=== PATIENT | female | born 1990 | race Caucasian/White ===

== ENCOUNTER 2017-07-21 20:01 | Emergency (ER) | payer OTHER ==
[~2017-07-21] VITALS: Ht 154.9 cm; Wt 72.0 kg
[2017-07-21 20:14] VITALS: BP 139/69; PULSE 84; RESP 16; TEMP 98.2; O2SAT 100
[2017-07-21] MEDS ORDERED: IMIT25TA PO (20:33)
[2017-07-21] MEDS ORDERED: DOXY10TA PO (20:33)
--- NOTE | 2017-07-21 20:43 | PD ---
HPI Chief Complaint: Skin Problem Time Seen by Provider: 20:33 Travel History International Travel<30 days: No Contact w/Intl Traveler<30days: No Traveled to known affect area: No History of Present Illness HPI Patient comes in complaining of possible MRSA infection of her left forearm that began 2-3 days ago. Patient started small pimple just progressively gotten worse. Patient states she popped it yesterday with her fingernail, which since has increased redness and soreness in the area without radiation. Patient has been using leftover Bactroban ointment from previous MRSA infection however continues to get worse. Patient denies any fevers, IV drug use, radiation of the pain, chest pain, or shortness breath. Patient reports she is approximately 9 weeks. PFSH Past Medical History Diminished Hearing: No Medical other: Yes (fibromyalgia) Tetanus Vaccination: > 5 Years Influenza Vaccination: No ?: LMP: 05/21/17 Past Surgical History Section: Yes (2016) Social History Alcohol Use: No Tobacco Use: No Substance Use: No Allergies-Medications (Allergen,Severity, Reaction): Coded Allergies: No Known Allergies (Unverified , 07/21/17) Reported Meds & Prescriptions Reported Meds & Active Scripts Active Bactroban Topical (Mupirocin) 22 Gm Cream 1 Applic TOPICAL TID Reported Imitrex (Sumatriptan Succinate) 25 Mg Tab 25 Mg PO ONCE PRN If a satisfactory response has not been obtained at 2 hours, a second dose may be administered Diclegis (Doxylamine-Pyridoxine) 10-10 Mg Tab 10 Mg PO Q4-6H PRN Review of Systems Except as stated in HPI: all other systems reviewed are Neg Physical Exam Narrative GENERAL: Well-developed, well nourished, in no acute distress, and non-ill appearing. SKIN: The area of erythematous is febrile and mildly tender to palpation and indurated noted on the volar surface of left forearm there is no drainage. Approximately 2.5 centimeters in greatest diameter. There is no crepitus or fluctuation. Patient's second smaller area proximal aspect of her left forearm volar surface is approximately half centimeters in greatest diameter. There is no drainage, crepitus, or fluctuation.. HEAD: Atraumatic. Normocephalic. EYES: Pupils equal and round. EOMI. No scleral icterus. No injection or drainage. ENT: No nasal bleeding or discharge. Mucous membranes pink and moist. NECK: Trachea midline. Supple. No nuclear rigidity. RESPIRATORY: No accessory muscle use. No respiratory distress. MUSCULOSKELETAL: No obvious deformities. No clubbing. No cyanosis. No edema. Full range of motion. NEUROLOGICAL: Awake and alert. No obvious cranial nerve deficits. Motor grossly within normal limits. Normal speech. PSYCHIATRIC: Appropriate mood and affect; insight and judgment normal. Data Data Last Documented VS Vital Signs Date Time Temp Pulse Resp B/P (MAP) Pulse Ox O2 Delivery O2 Flow Rate FiO2 07/21/17 20:14 98.2 84 16 139/69 (92) 100 Orders Orders Ed Discharge Order (07/21/17 20:43) MDM Medical Decision Making Medical Screen Exam Complete: Yes Emergency Medical Condition: Yes Differential Diagnosis Abscess, cellulitis, folliculitis, gangrene Narrative Course The patient has cellulitis. There is no evidence of necrotizing fasciitis at this time. There is no evidence of abscess. There is no evidence of local joint space involvement. There is no evidence of deep venous thrombosis. The patient will be discharged on antibiotics. The patient was given signs and symptoms warnings for worsening infection, such as spreading of redness, increasing pain , and/or swelling, associated heat, or fever and instructed to return immediately if these signs or symptoms worsen. The patient is to follow up with physician in 2 days for recheck or return here in 2 days for recheck if unable to establish outpatient follow up. Sooner if worsens or as needed. The patient agrees with plan. Patient in no obvious distress upon re-evaluation. Patient was asked if they wanted to speak to my attending, which the patient did not wish to do at this time. Any questions/concerns in reference to patient diagnosis/condition discussed and clarified prior to patient's discharge. Reinforced sheer importance of close follow up with patient's primary physician or primary care clinic and return here in 2 days for recheck. Instructed patient to return to ED immediately, if symptoms return/worsen. Patient showed understanding of above instructions. Further instructions and recommendations were detailed in discharge paperwork. Patient ambulated without difficulty out of ED at discharge. Diagnosis Primary Impression: Cellulitis of left forearm Referrals: [facility] Patient Instructions: Cellulitis (ED), General Instructions Additional Instructions: Follow-up with your primary care physician or return here in 2 days for recheck. Take all medication as prescribed. Return to the emergency department if symptoms get worse. Med/Other Pt SpecificInfo: Prescription(s) given Scripts Mupirocin Topical (Bactroban Topical) 22 Gm Cream 1 APPLIC TOPICAL TID for Mgmt Bacterial Infection, #1 TUBE 0 Refills Prov: Esequiel Haji MD 07/21/17 Disposition: 01 DISCHARGE HOME Condition: Stable Billy Reich Jul 21, 2017 20:43
[2017-07-21] MEDS ORDERED: CLIN300C5 PO (20:44)
[2017-07-21] MEDS ORDERED: MUPI2%T TOPICAL (21:06)
== END 2017-07-21 21:18 | disposition home or self-care (01) ==
LOC: PHEFT 20:01
DX: O98.811 Other maternal infectious and parasitic diseases complicating pregnancy, first trimester (principal); L03.114 Cellulitis of left upper limb; M79.7 Fibromyalgia; Z86.14 Personal history of Methicillin resistant Staphylococcus aureus infection; Z3A.09 9 weeks gestation of pregnancy
CPT/HCPCS: 99283

== ENCOUNTER 2017-12-04 15:57 | Emergency (ER) | payer OTHER ==
[~2017-12-04 15:57] MED LIST: DOXY10TA PO; IMIT25TA PO; MUPI2%T TOPICAL
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
[2017-12-04 17:30] VITALS: BP 109/59; PULSE 96
[2017-12-04 18:20] VITALS: RESP 18
[2017-12-04 18:21] VITALS: BP 125/83; PULSE 114
[2017-12-04 19:58] VITALS: RESP 18
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
== END 2017-12-04 22:04 | disposition home or self-care (01) ==
LOC: HOBED 15:57
DX: O26.893 Other specified pregnancy related conditions, third trimester (principal); R10.31 Right lower quadrant pain; Z3A.28 28 weeks gestation of pregnancy
CPT/HCPCS: 76815; 87641; 99284

== ENCOUNTER 2017-12-25 17:16 | Emergency (ER) | payer OTHER ==
[2017-12-25] MEDS ORDERED: DEXT 5%-NACL 0.45% 1000 ML INJ 1,000 ML IV SCH (18:00)
[2017-12-25] MEDS ORDERED: TERBUTALINE INJ 1 MG/ML AMP SQ PRN (18:00)
--- NOTE | 2017-12-25 18:01 | PD ---
HPI Chief Complaint Decreased movement Date Seen: December 25, 2017 Time Seen: 17:52 Travel History International Travel<30 Days: No Contact w/Intl Traveler<30Days: No Known Affected Area: No History of Present Illness HPI 27-year-old white female at 31 [address] Velásquez for care. She presented plan decreased movement today. Also states she has contractions all the time and she is rudy today about every 3-4 minutes. No vaginal bleeding no leakage of fluid, NST is reactive Weeks Gestation: 31 Para: 1 : 2 History Past Medical History Narrative Medical Fibromyalgia Chronic migraine Obstetric History Obstetric History 1 for failed induction term Past Surgical History Narrative Surgical C section Social History Alcohol Use: No Tobacco Use: No Substance Abuse: No Allergies-Medications (Allergen,Severity, Reaction): Coded Allergies: No Known Allergies (Unverified , 07/21/17) Home Meds Active Scripts Mupirocin Topical (Bactroban Topical) 22 Gm Cream, 1 APPLIC TOPICAL TID for Mgmt Bacterial Infection, #1 TUBE 0 Refills Prov:Esequiel Haji MD 07/21/17 Reported Medications Sumatriptan (Imitrex) 25 Mg Tab, 25 MG PO ONCE Y for MIGRAINE HEADACHE, TAB 0 Refills If a satisfactory response has not been obtained at 2 hours, a second dose may be administered 07/21/17 Doxylamine-Pyridoxine (Diclegis) 10-10 Mg Tab, 10 MG PO Q4-6H Y for NAUSEA 07/21/17 Review of Systems General / Constitutional: No: Fever, Weight Gain, Chills, Other Eyes: No: Diploplia, Blurred Vision, Visual changes, Pain, Photophobia HENT: No: Headaches, Vertigo, Lightheadedness Cardiovascular: No: Irregular Rhythm, Chest Pain or Discomfort, Palpitations, Tachycardia, Syncope, Varicosities, Edema, Cyanosis Respiratory: No: Cough, Short of Breath, Other Gastrointestinal: No: Nausea, Vomiting, Diarrhea Genitourinary: No: Decreased Urinary Output, Oliguria Musculoskeletal: No: Limited ROM, Weakness, Cramping, Edema, Pain Skin: No Rash, No Itching, No Dryness, No Lumps, No Change in Pigmentation, No Change in Nails, No Alopecia, No Lesions Neurologic: No: Weakness, Dizziness, Syncope, Focal Abnormalities, Coordination Problem, Headache, Slurred Speech, Seizures Psychiatric: No: Depression, Suicidal Ideations, Homicidal Ideation Endocrine: No: Heat Intolerance, Cold Intolerance, Polydipsia, Polyuria, Other Physical Exam Narrative GENERAL: Well-nourished, well-developed patient. SKIN: Warm and dry. HEAD: Normocephalic and atraumatic. EYES: No scleral icterus. No injection or drainage. ENT: No nasal drainage noted. Mucous membranes pink. Airway patent. NECK: Supple, trachea midline. No JVD. CARDIOVASCULAR: Regular rate and rhythm without murmurs, gallops, or rubs. RESPIRATORY: Breath sounds equal bilaterally. No accessory muscle use. BREASTS: Bilateral exam showed no masses , no retractions, no nipple discharge. ABDOMEN/GI: Abdomen soft, non-tender, bowel sounds present, no rebound, no guarding Gravid to [-30] weeks size Fundal Height: [30-] GENITOURINARY: External Genitalia: intact and normal in appearance BUS glands: [-] Cervix: [-post] Dilatation: [0-] Effacement: [-0] Station: [-3] ] Membranes: [intact ] Uterine Contractions: [-q 3 min] FHT's: Category: [1-] Baseline: [-133] Reactive: [R-] Variability: [mod-] Decels: [-0] EXTREMITIES: No cyanosis or edema. BACK: Nontender without obvious deformity. No CVA tenderness. NEUROLOGICAL: Awake and alert. Motor and sensory grossly within normal limits. Five out of 5 muscle strength in all muscle groups. Normal speech. Data Data Orders Orders Vital Signs (Adult) .ON ADMISSION (12/25/17 17:52) ^ Labor Status (12/25/17 17:52) ^ Non Stress Test (12/25/17 17:52) ^ Hydration (12/25/17 17:52) Fibronectin (12/25/17 17:52) Dext 5%-Nacl 0.45% 1000 Ml Inj (D5w-1/2 (12/25/17 17:52) Terbutaline Inj (Brethine Inj) (12/25/17 18:00) Fentanyl Inj (Fentanyl Inj) (12/25/17 18:00) MDM Interpretation(s) Patient is 27-year-old white female 31 weeks previous presents with decreased movement. She sees Dr. Velásquez care. She has a reactive NST for 31 weeks, she also is having regular contractions that she is not really feeling and she states she has these all the time. However because she is rudy regularly 31 weeks we needed to do something to address that issue fibronectin done and is negative, urine dip on OB ED is negative Cervix is closed high. Plan Plan fibronectin, tocolyse is with IV fluid, subcu terb, IV fentanyl. If contractions decrease with the above measures then plan discharge the patient home to follow-up with Dr. Velásquez Diagnosis Diagnosis: Primary Impression: Decreased movement affecting management of in third trimester Additional Impressions: Premature uterine contractions causing threatened premature labor in third trimester 31 weeks gestation of Disposition: 01 DISCHARGE HOME Condition: Stable David Terrazas II, MD December 25, 2017 18:01
== END 2017-12-25 19:10 | disposition home or self-care (01) ==
LOC: HOBED 17:16
DX: O36.8130 Decreased fetal movements, third trimester, not applicable or unspecified (principal); O47.03 False labor before 37 completed weeks of gestation, third trimester; Z3A.31 31 weeks gestation of pregnancy
CPT/HCPCS: 82731; 96365; 96372; 99284; J3105

== ENCOUNTER 2018-01-04 19:51 | Emergency (ER) | payer OTHER ==
--- NOTE | 2018-01-04 21:58 | PD ---
HPI Chief Complaint ctxs Date Seen: January 04, 2018 Time Seen: 21:53 Travel History International Travel<30 Days: No Contact w/Intl Traveler<30Days: No Known Affected Area: No History of Present Illness HPI pt. is a @ 32 4/7 weeks present w/ c/o ctxs. pt. states thruout the day has been having ctxs. the contractions have been increasing in freq and intensity thruout the day. +FM, no lof/vb. Weeks Gestation: 32 Para: 1 : 2 History Past Medical History Medical History: Denies Significant Hx Obstetric History Obstetric History , x 1 Past Surgical History Surgical History: No Previous Surgery Family History Family History: Negative Social History Alcohol Use: No Tobacco Use: No Substance Abuse: No Allergies-Medications (Allergen,Severity, Reaction): Coded Allergies: No Known Allergies (Unverified , 07/21/17) Home Meds Active Scripts Mupirocin Topical (Bactroban Topical) 22 Gm Cream, 1 APPLIC TOPICAL TID for Mgmt Bacterial Infection, #1 TUBE 0 Refills Prov:Esequiel Haji MD 07/21/17 Reported Medications Sumatriptan (Imitrex) 25 Mg Tab, 25 MG PO ONCE Y for MIGRAINE HEADACHE, TAB 0 Refills If a satisfactory response has not been obtained at 2 hours, a second dose may be administered 07/21/17 Doxylamine-Pyridoxine (Diclegis) 10-10 Mg Tab, 10 MG PO Q4-6H Y for NAUSEA 07/21/17 Review of Systems Except as stated in HPI: all other systems reviewed are Neg Physical Exam Narrative GENERAL: Well-nourished, well-developed patient. SKIN: Warm and dry. HEAD: Normocephalic and atraumatic. EYES: No scleral icterus. No injection or drainage. ENT: No nasal drainage noted. Mucous membranes pink. Airway patent. NECK: Supple, trachea midline. No JVD. CARDIOVASCULAR: Regular rate and rhythm without murmurs, gallops, or rubs. RESPIRATORY: Breath sounds equal bilaterally. No accessory muscle use. BREASTS: Bilateral exam showed no masses , no retractions, no nipple discharge. ABDOMEN/GI: Abdomen soft, non-tender, bowel sounds present, no rebound, no guarding Gravid GENITOURINARY: External Genitalia: intact and normal in appearance Dilatation: closed Effacement: long Station: high Uterine Contractions: irreg FHT's: Category: 1 Reactive: + Variability: mod EXTREMITIES: No cyanosis or edema. BACK: Nontender without obvious deformity. No CVA tenderness. NEUROLOGICAL: Awake and alert. Motor and sensory grossly within normal limits. Five out of 5 muscle strength in all muscle groups. Normal speech. Data Data Vital Signs Reviewed: Yes Orders Orders Urinalysis - C+S If Indicated (01/04/18 21:06) [employer] Clear For Discharge (01/04/18 ) [facility] Medical Record Reviewed: Yes Plan pt. po hydrated w/ resolution of ctxs. pt. to be d/c to home. given precautions for return. all ? answered. f/u as sched. Diagnosis Diagnosis: Primary Impression: False labor before 37 completed weeks of gestation Additional Impression: 32 weeks gestation of Disposition: DISCHARGE HOME Onel Miller Jr., MD January 04, 2018 21:58
[2018-01-04 22:01] LABS: BACTERIA, URINE OCC /hpf; BILIRUBIN, URINE NEG (NEG); BLOOD, URINE NEG (NEG); GLUCOSE,URINE NEG (NEG); KETONE, URINE TRACE mg/dL (NEG); MUCUS URINE FEW /lpf (OCC); NITRITE,URINE NEG (NEG); SQUAMOUS EPITHELIAL CELL URINE 3 /hpf (0-5); URINE COLOR LIGHT-YELLOW (YELLW/STRAW); URINE LEUKOCYTE ESTERASE MOD (NEG)
== END 2018-01-04 22:25 | disposition home or self-care (01) ==
LOC: HOBED 19:51
DX: O47.03 False labor before 37 completed weeks of gestation, third trimester (principal); Z3A.32 32 weeks gestation of pregnancy
CPT/HCPCS: 59025; 81001

== ENCOUNTER 2018-02-20 10:10 | Inpatient (IN) ==
[2018-02-20] MEDS ORDERED: fentaNYL Citrate Inj 100 MCG/2 ML Ampul ONE ×3 (11:31→13:30)
[2018-02-20] MEDS ORDERED: Morphine Sulfate PF Inj 5 MG/10 ML Ampul ONE (11:32)
[2018-02-20 11:42] LABS: Baso % (Auto) 0.3 % (0.0-2.0); Eos # (Auto) 0.1 th/mm3 (0.0-0.4); Eos % (Auto) 0.8 % (0.0-4.0); Hematocrit 40.7 % (35.0-46.0); Hemoglobin 13.6 gm/dL (11.6-15.3); Lymph # (Auto) 1.4 th/mm3 (1.0-4.8); Lymph % (Auto) 13.8 % (9.0-44.0); Mean Corpuscular HGB Conc 33.4 % (32.0-36.0); Mean Corpuscular Volume 83.9 fL (80.0-100.0); Mean Platelet Volume 9.8 fL (7.0-11.0); Mono # (Auto) 0.4 th/mm3 (0.0-0.9); Neut # (Auto) 8.4 th/mm3 (1.8-7.7); Neut % (Auto) 81.1 % (16.0-70.0); Platelet Count 235 th/mm3 (150-450); Red Blood Count 4.85 mil/mm3 (4.00-5.30); Red Cell Distribution Width 16.1 % (11.6-17.2); White Blood Count 10.3 th/mm3 (4.0-11.0)
[2018-02-20] MEDS ORDERED: Citric Acid/Sodium Citrate Liq 30 ML UDC ONE (11:50)
[2018-02-20] MEDS ORDERED: Ketorolac Inj 30 MG/ML (IVP) Vial IV.PUSH ONE (12:00)
[2018-02-20] MEDS ORDERED: Phenylephrine/NS 1000 MCG/10ML Syringe IV.PUSH ONE (12:00)
[2018-02-20] MEDS ORDERED: Citric Acid/Sodium Citrate Liq 30 ML UDC PO SCH (12:45)
[2018-02-20] MEDS ORDERED: ceFAZolin 2 GM Premix Inj 2 GM/50 ML PIGGYBACK IV.SIG SCH (13:00)
[2018-02-20 14:03] LABS: Bacteria,Urine Rare /hpf; Bilirubin,Urine Negative (Negative); Clarity,Urine Clear (Clear); Color,Urine Yellow (Yellw/Straw); Glucose,Urine (UA) Negative (Negative); Leukocyte Esterase,Urine Small (Negative); Nitrite,Urine Negative (Negative); Specific Gravity,Urine 1.015 (1.002-1.035); Squamous Epithelial Cell,Urine 3 /hpf (0-5)
--- NOTE | 2018-02-20 14:03 | MP ---
cc: Maury Velásquez MD DATE OF OPERATION: 02/20/2018 PREOPERATIVE DIAGNOSES: 1. Intrauterine at 39+ weeks. 2. Previous section, desires repeat. 3. Probable macrosomia of the fetus. POSTOPERATIVE DIAGNOSES: 1. Intrauterine at 39+ weeks. 2. Previous section, desires repeat. 3. Probable macrosomia of the fetus. PROCEDURE PERFORMED: Repeat low transverse section and excision of old scar. ANESTHESIA: Spinal. FINDINGS: Normal tubes, ovaries, uterus. Cul-de-sacs were cleaned. COMPLICATIONS: None. COUNTS: Correct. ESTIMATED BLOOD LOSS: 600 mL FLUIDS: Crystalloids. CONDITION: The patient tolerated the procedure well and went to the recovery room in good condition. INDICATION FOR PROCEDURE: This is a lady who had a previous section and she was noted to have a macrosomic baby several weeks ago. After discussing all the options of trial labor versus , we elected to proceed with a . PROCEDURE: The patient was taken to the operating room identified by name band and verbally. She was given a spinal anesthetic. A Cleveland catheter was inserted. She was prepped and draped for section. The old Pfannenstiel incision was removed and excised completely and the incision was taken down to the fascia. The fascia was taken off the rectus muscle by blunt and sharp dissection. The peritoneum was entered under direct vision without complication. The incision was extended with care to avoid the urinary bladder. A bladder blade was placed and a bladder flap created over the lower uterine segment which was well-developed. The uterus was then scored in a transverse manner along the lower uterine segment and taken down in the midline until the uterine cavity was entered. The incision was extended with the surgeon's fingers. The vertex was grasped and delivered through the incision without difficulty. The hypopharynx and nasopharynx were suctioned. The remainder of the was delivered. The cord was doubly clamped and cut and the handed to the resuscitation team that was present. Cord blood was obtained. The placenta was delivered manually without difficulty. The uterus was curettaged twice with a wet lap. The uterine incision was repaired with 2-0 Vicryl a running locking fashion, the second layer imbricating the first. The cul-de-sac and gutters were cleaned of blood and debris with a large amount of irrigation. The uterus was delivered back into the abdomen. The incision was again inspected and was hemostatic. The rectus muscles were reapproximated with 0 Vicryl in an interrupted fashion. The fascia was repaired with 0 Vicryl from lateral to midline bilaterally in a running fashion. The subcutaneous tissue was repaired with 3-0 Vicryl. The skin was repaired with 4-0 Monocryl in a subcuticular manner. Steri-Strips were applied. The wound was sterilely dressed. She tolerated the procedure well and went to the recovery room in good condition. R. MD GABRIELLA Lafleur/CLYDE , 01:43 PM , 02:01 PM
[2018-02-20] MEDS ORDERED: Naloxone Inj 0.4 MG/ML Vial IV.PUSH PRN (15:29)
[2018-02-20] MEDS ORDERED: Simethicone 80 MG Chew Tablet PO PRN (15:40)
[2018-02-20] MEDS ORDERED: Zolpidem Tartrate 5 MG Tablet PO PRN (15:40)
[2018-02-20] MEDS ORDERED: Senna/Docusate Sodium 8.6/50 MG Tablet PO PRN (15:40)
[2018-02-20] MEDS ORDERED: Acetaminophen 325 MG Tablet PO PRN (15:40)
[2018-02-20] MEDS ORDERED: Oxytocin 30 Units/500ml Premix 30 UNITS/500 ML BAG IV.SIG ONE (15:40)
--- NOTE | 2018-02-20 16:57 | P.HP ---
History of Present Illness Primary Care Physician: No Primary Care Physician Chief Complaint: repeat c section History of Present Illness: pt being admitted for repeat c section, 39 week , macrosomia and polyhydramnios - Diagnosis (1) S/P repeat low transverse (2) Polyhydramnios affecting in third trimester (3) Macrosomia Inpatient Certification: I certify that the inpatient services were ordered in accordance with Medicare regulations governing the order. This includes certification that hospital inpatient services are reasonable and necessary and in the case of services not specified as inpatient-only under 42 CFR 419.22(n), that they are appropriately provided as inpatient services in accordance to with the 2-midnight benchmark under 43 CFR 412.3(e) Estimated Total Length of Stay (Days): 3 Plans for Post Hospital Care: Home Review of Systems All other systems reviewed negative except as stated in HPI PMFSH - History History Provided By: Medical Record - Medical History Medical History: Medical History (Last Updated 02/20/18 @ 16:52 by LESA Purcell) Anemia Eczema Fibromyalgia History of anesthesia problem Migraine - Surgical History Surgical History: Surgical History (Last Updated 02/20/18 @ 16:48 by LESA Purcell) H/O removal of cyst Previous section - Family History Family History: Family History (Last Updated 02/20/18 @ 16:52 by LESA Purcell) Grandparent Family history of lung cancer Grandparent Family history of pancreatic cancer Grandparent Dementia - Tobacco History Smoking Status: Never smoker - Alcohol History How Often Do You Have a Drink Containing Alcohol: Never - Substance Use History Substance History: No History of Abuse - Travel History Recent Travel in the [place] Within the Last 8 Weeks: No Recent Travel Out of the Country Within the Last 8 Weeks: No Medications and Allergies Active Medications: Active Medications Acetaminophen (Tylenol) 650 mg PO Q6H PRN PRN Reason: PAIN SCALE 1 TO 2 Hydrocodone Bitart/Acetaminophen ([place] 5/325) 1 tab PO Q4H PRN PRN Reason: PAIN 3-5 Hydrocodone Bitart/Acetaminophen ([place] 5/325) 2 tab PO Q4H PRN PRN Reason: PAIN 6-10 Citric Acid/Sodium Citrate (Sodium Citrate/Citric Acid Liq) 30 ml PO PHYSICAL CHEMIST TAMMY Stop: 02/24/18 12:44 Diphenhydramine HCl (Benadryl Inj) 25 mg IV.PUSH Q6H PRN PRN Reason: MILD TO MODERATE ITCHING Stop: 02/21/18 15:28 Diphenhydramine HCl (Benadryl) 50 mg PO Q6H PRN PRN Reason: MILD TO MODERATE ITCHING Stop: 02/21/18 15:28 Diphtheria/Pertussis/Tetanus Vacc (Boostrix Vaccine Inj) 0.5 ml IM .ONCE ONE Stop: 02/21/18 16:01 Cefazolin Sodium/Dextrose (Ancef 2 Gm Premix Inj) 2 gm in 50 mls @ 100 mls/hr IV.SIG PHYSICAL CHEMIST [facility] Stop: 02/24/18 12:59 Lactated Ringer's (Lr 1000 Ml Inj) 1,000 mls @ 150 mls/hr IV.CONT .Q6H40M [facility] Last Admin: 02/20/18 11:30 Dose: 150 mls/hr Cefazolin Sodium 1,000 mg/ (Sodium Chloride) 100 mls @ 200 mls/hr IV.SIG Q8H [facility] Stop: 02/21/18 04:29 Lactated Ringer's (Lr 1000 Ml Inj) 1,000 mls @ 100 mls/hr IV.CONT .Q10H [facility] Stop: 02/21/18 16:39 Oxytocin (Pitocin 30 Units/Ns 500 Ml Premix) 30 units in 500 mls @ 100 mls/hr IV.SIG PRN PRN PRN Reason: Heavy bleeding Stop: 02/21/18 20:39 Oxytocin (Pitocin 30 Units/Ns 500 Ml Premix) 30 units in 500 mls @ 100 mls/hr IV.SIG ONCE ONE Stop: 02/20/18 20:39 Last Admin: 02/20/18 16:24 Dose: 100 mls/hr Measles/Mumps/Rubella Vaccine Live (M-M-R Ii Vaccine Inj) 0.5 ml SQ .ONCE ONE Stop: 02/21/18 16:01 Miscellaneous Information (Misc Nursing Information) 1 each OTHER UNSCH PRN PRN Reason: SEE LABEL COMMENTS Stop: 02/21/18 15:28 Miscellaneous Information (Misc Nursing Information) 1 each OTHER UNSCH PRN PRN Reason: SEE LABEL COMMENTS Stop: 02/21/18 15:28 Naloxone HCl (Narcan Inj) 0.4 mg IV.PUSH UNSCH PRN PRN Reason: SEE LABEL COMMENTS Stop: 02/21/18 15:28 Ondansetron HCl (Zofran Inj) 4 mg IV.PUSH Q6H PRN PRN Reason: NAUSEA OR VOMITING Senna/Docusate Sodium (Daya-Colace) 2 tab PO Q12H PRN PRN Reason: CONSTIPATION Simethicone (Mylicon Chew) 80 mg PO QID PRN PRN Reason: FLATULENCE Sodium Chloride (Ns Flush) 2 ml IV.FLUSH BID TAMMY Sodium Chloride (Ns Flush) 2 ml IV.FLUSH PRN PRN PRN Reason: FLUSH AFTER USING IV ACCESS Zolpidem Tartrate (Ambien) 5 mg PO HS PRN PRN Reason: INSOMNIA Allergies Allergy/AdvReac Type Severity Reaction Status Date / Time No Known Allergies Allergy Verified 02/20/18 11:48 Home Medications Medication Instructions Recorded Confirmed Type Imitrex 100 mg PO PRN 02/20/18 02/20/18 History 1 cap PO DAILY 02/20/18 02/20/18 History ferrous sulfate [iron] 325 mg PO DAILY 02/20/18 02/20/18 History Exam Vital signs: Vital Signs 02/20/18 10:38 02/20/18 11:04 02/20/18 14:05 Temperature 98.6 F 98.4 F Pulse Rate 90 90 Respiratory Rate 18 18 18 Blood Pressure 126/76 123/71 02/20/18 14:20 02/20/18 14:35 02/20/18 14:49 Temperature Pulse Rate 79 76 87 Respiratory Rate 18 Blood Pressure 136/60 120/57 L 120/80 02/20/18 15:02 Temperature Pulse Rate 70 Respiratory Rate 18 Blood Pressure 123/79 Intake & Output 02/19/18 02/20/18 02/20/18 18:59 06:59 18:59 Weight 90.045 kg Other: Weight On Admission 90.045 kg - Constitutional no acute distress - Routine HEENT Exam Head: Present: normocephalic ENT: Present: mucous membranes moist - Routine Respiratory Exam Present: CTA bilaterally - Routine Cardiovascular Exam Present: RRR - Routine Abdominal Exam Present: soft - Detailed Abdominal Exam Comments: gravid - Routine Extremities Exam Present: normal capillary refill - Routine Skin Exam Present: intact - Routine Neurological Exam Present: alert, oriented X3 (examined by Dr Quintanilla) Results - Labs CBC & Chem 7: 02/20/18 10:50 Labs: Laboratory Results - last 24 hr 02/20/18 02/20/18 02/20/18 09:40 10:50 10:50 WBC 10.3 RBC 4.85 Hgb 13.6 Hct 40.7 MCV 83.9 MCH 28.0 MCHC 33.4 RDW 16.1 Plt Count 235 MPV 9.8 Neut % (Auto) 81.1 H Lymph % (Auto) 13.8 Cecil % (Auto) 4.0 Eos % (Auto) 0.8 Baso % (Auto) 0.3 Neut # (Auto) 8.4 H Lymph # (Auto) 1.4 Cecil # (Auto) 0.4 Eos # (Auto) 0.1 Baso # (Auto) 0.0 WBC Differential . Differential Comment Auto diff final Urine Color Yellow Urine Clarity Clear Urine pH 7.0 Ur Specific [place] 1.015 Urine Protein Negative Urine Glucose (UA) Negative Urine Ketones Negative Urine Occult Blood Negative Urine Nitrate Negative Urine Bilirubin Negative Urine Urobilinogen Less than 2 Ur Leukocyte Esterase Small H Urine WBC 1 Ur Squamous Epith Cells 3 Urine Bacteria Rare H Micro UA Comment Culture not ind Urine Culture Comments Culture not ind Blood Type A Positive Blood Type Recheck Required Antibody Screen Negative Caprini VTE Risk Assessment Caprini VTE Risk Assessment: No/Low Risk (score <= 1) Caprini Risk Assessment Model: Point Value = 1 Point Value = 2 Point Value = 3 Point Value = 5 Age 41-60 Minor surgery BMI > 25 kg/m2 Swollen legs Varicose veins or History of unexplained or recurrent spontaneous Oral contraceptives or hormone replacement Sepsis (< 1 month) Serious lung disease, including pneumonia (< 1 month) Abnormal pulmonary function Acute myocardial infarction Congestive heart failure (< 1 month) History of inflammatory bowel disease Medical patient at bed rest Age 61-74 Arthroscopic surgery Major open surgery (> 45 min) Laparoscopic surgery (> 45 min) Malignancy Confined to bed (> 72 hours) Immobilizing plaster cast Central venous access Age >= 75 History of VTE Family history of VTE Factor V Leiden Prothrombin [id number] Lupus anticoagulant Anticardiolipin antibodies Elevated serum homocysteine Heparin-induced thrombocytopenia Other congenital or acquired thrombophilia Stroke (< 1 month) Elective arthroplasty Hip, pelvis, or leg fracture Acute spinal cord injury (< 1 month) Prophylaxis Regimen: Total Risk Factor Score Risk Level Prophylaxis Regimen 0-1 Low Early ambulation 2 Moderate Order ONE of the following: *Sequential Compression Device (SCD) *Heparin 5000 units SQ BID 3-4 Higher Order ONE of the following medications: *Heparin 5000 units SQ TID *Enoxaparin/Lovenox 40 mg SQ daily (WT < 150 kg, CrCl > 30 mL/min) *Enoxaparin/Lovenox 30 mg SQ daily (WT < 150 kg, CrCl > 10-29 mL/min) *Enoxaparin/Lovenox 30 mg SQ BID (WT < 150 kg, CrCl > 30 mL/min) AND/OR *Sequential Compression Device (SCD) 5 or more Highest Order ONE of the following medications: *Heparin 5000 units SQ TID (Preferred with Epidurals) *Enoxaparin/Lovenox 40 mg SQ daily (WT < 150 kg, CrCl > 30 mL/min) *Enoxaparin/Lovenox 30 mg SQ daily (WT < 150 kg, CrCl > 10-29 mL/min) *Enoxaparin/Lovenox 30 mg SQ BID (WT < 150 kg, CrCl > 30 mL/min) AND *Sequential Compression Device (SCD) Assessment and Plan - Assessment (1) S/P repeat low transverse Code(s): Z98.891 - History of uterine scar from previous surgery Status: Acute Plan: routine post op care (2) Polyhydramnios affecting in third trimester Code(s): O40.3XX0 - Polyhydramnios, third trimester, not applicable or unspecified Status: Acute Plan: delivery (3) Macrosomia Code(s): P08.0 - Exceptionally large baby Status: Acute Plan: delivery - Plan Discharge Planning: consider dc in 2-3 days
[2018-02-20] MEDS ORDERED: Oxytocin 30 Units/500ml Premix 30 UNITS/500 ML BAG IV.SIG PRN (20:40)
[2018-02-21 10:08] LABS: Baso % (Auto) 0.2 % (0.0-2.0); Eos % (Auto) 0.3 % (0.0-4.0); Hematocrit 33.2 % (35.0-46.0); Lymph % (Auto) 7.6 % (9.0-44.0); Mean Corpuscular HGB Conc 33.1 % (32.0-36.0); Mean Corpuscular Hemoglobin 27.8 pg (27.0-34.0); Mean Corpuscular Volume 84.1 fL (80.0-100.0); Mean Platelet Volume 8.8 fL (7.0-11.0); Mono # (Auto) 0.5 th/mm3 (0.0-0.9); Mono % (Auto) 3.8 % (0.0-8.0); Neut # (Auto) 11.3 th/mm3 (1.8-7.7); Neut % (Auto) 88.1 % (16.0-70.0); Platelet Count 184 th/mm3 (150-450); Red Blood Count 3.94 mil/mm3 (4.00-5.30); Red Cell Distribution Width 16.3 % (11.6-17.2); White Blood Count 12.8 th/mm3 (4.0-11.0)
--- NOTE | 2018-02-21 10:56 | P.PNOB ---
Subjective Post op day: 1 Objective Vital Signs/I&O: Vital Signs 02/20/18 11:04 02/20/18 14:05 02/20/18 14:20 Temperature 98.6 F 98.4 F Pulse Rate 90 79 Respiratory Rate 18 18 18 Blood Pressure 123/71 136/60 02/20/18 14:35 02/20/18 14:49 02/20/18 15:02 Temperature Pulse Rate 76 87 70 Respiratory Rate 18 18 18 Blood Pressure 120/57 L 120/80 123/79 02/20/18 15:50 02/20/18 19:00 02/20/18 20:00 Temperature 98.8 F Pulse Rate 76 79 Respiratory Rate 16 18 Blood Pressure 138/95 H 123/70 115/69 02/20/18 22:49 02/21/18 03:49 02/21/18 04:00 Temperature 98.6 F Pulse Rate 78 74 Respiratory Rate 18 Blood Pressure 103/64 104/62 02/21/18 07:59 Temperature 98.1 F Pulse Rate 80 Respiratory Rate 18 Blood Pressure 114/70 Intake & Output 02/20/18 02/21/18 02/21/18 18:59 06:59 18:59 Weight 90.045 kg Other: Weight On Admission 90.045 kg Result Diagrams: 02/21/18 09:35 Objective Remarks: GENERAL: Well-nourished, well-developed patient. CARDIOVASCULAR: Regular rate and rhythm without murmurs, gallops, or rubs. RESPIRATORY: Breath sounds equal bilaterally. No accessory muscle use. ABDOMEN/GI: Abdomen soft, non-tender, bowel sounds present. Incision: pressure dressing Clean, dry and intact. Fundus: Firm, non-tender at umbilicus. GENITOURINARY: Light to moderate bleeding. EXTREMITIES: No cyanosis or edema, non-tender, without signs of DVT. Medications and IVs: Active Medications Acetaminophen (Tylenol) 650 mg PO Q6H PRN PRN Reason: PAIN SCALE 1 TO 2 Hydrocodone Bitart/Acetaminophen ([place] 5/325) 1 tab PO Q4H PRN PRN Reason: PAIN 3-5 Last Admin: 02/21/18 07:50 Dose: 1 tab Hydrocodone Bitart/Acetaminophen ([place] 5/325) 2 tab PO Q4H PRN PRN Reason: PAIN 6-10 Citric Acid/Sodium Citrate (Sodium Citrate/Citric Acid Liq) 30 ml PO [employer]IDENCE MANAGER [facility] Stop: 02/24/18 12:44 Diphenhydramine HCl (Benadryl Inj) 25 mg IV.PUSH Q6H PRN PRN Reason: MILD TO MODERATE ITCHING Stop: 02/21/18 15:28 Diphenhydramine HCl (Benadryl) 50 mg PO Q6H PRN PRN Reason: MILD TO MODERATE ITCHING Stop: 02/21/18 15:28 Diphtheria/Pertussis/Tetanus Vacc (Boostrix Vaccine Inj) 0.5 ml IM .ONCE ONE Stop: 02/21/18 16:01 Cefazolin Sodium/Dextrose (Ancef 2 Gm Premix Inj) 2 gm in 50 mls @ 100 mls/hr IV.SIG [employer]IDENCE MANAGER [facility] Stop: 02/24/18 12:59 Lactated Ringer's (Lr 1000 Ml Inj) 1,000 mls @ 150 mls/hr IV.CONT .Q6H40M [facility] Last Admin: 02/20/18 11:30 Dose: 150 mls/hr Lactated Ringer's (Lr 1000 Ml Inj) 1,000 mls @ 100 mls/hr IV.CONT .Q10H [facility] Stop: 02/21/18 16:39 Oxytocin (Pitocin 30 Units/Ns 500 Ml Premix) 30 units in 500 mls @ 100 mls/hr IV.SIG PRN PRN PRN Reason: Heavy bleeding Stop: 02/21/18 20:39 Measles/Mumps/Rubella Vaccine Live (M-M-R Ii Vaccine Inj) 0.5 ml SQ .ONCE ONE Stop: 02/21/18 16:01 Miscellaneous Information (Misc Nursing Information) 1 each OTHER UNSCH PRN PRN Reason: SEE LABEL COMMENTS Stop: 02/21/18 15:28 Miscellaneous Information (Misc Nursing Information) 1 each OTHER UNSCH PRN PRN Reason: SEE LABEL COMMENTS Stop: 02/21/18 15:28 Naloxone HCl (Narcan Inj) 0.4 mg IV.PUSH UNSCH PRN PRN Reason: SEE LABEL COMMENTS Stop: 02/21/18 15:28 Ondansetron HCl (Zofran Inj) 4 mg IV.PUSH Q6H PRN PRN Reason: NAUSEA OR VOMITING Senna/Docusate Sodium (Daya-Colace) 2 tab PO Q12H PRN PRN Reason: CONSTIPATION Simethicone (Mylicon Chew) 80 mg PO QID PRN PRN Reason: FLATULENCE Last Admin: 02/20/18 22:56 Dose: 80 mg Sodium Chloride (Ns Flush) 2 ml IV.FLUSH BID TAMMY Last Admin: 02/20/18 20:14 Dose: Not Given Sodium Chloride (Ns Flush) 2 ml IV.FLUSH PRN PRN PRN Reason: FLUSH AFTER USING IV ACCESS Zolpidem Tartrate (Ambien) 5 mg PO HS PRN PRN Reason: INSOMNIA Assessment and Plan - Diagnosis (1) S/P repeat low transverse Code(s): Z98.891 - History of uterine scar from previous surgery Status: Acute (2) Polyhydramnios affecting in third trimester Code(s): O40.3XX0 - Polyhydramnios, third trimester, not applicable or unspecified Status: Acute (3) Macrosomia Code(s): P08.0 - Exceptionally large baby Status: Acute - Plan pt doing well pain well managed with oral pain medication ambulating and voiding well bonding with infant routine care Discharge Planning: consider dc in 2 days
[2018-02-21] MEDS ORDERED: Measles/Mumps/Rubella Vaccine Inj 0.5 ML Vial SQ ONE (16:00)
[2018-02-21] MEDS ORDERED: Diphtheria/Tetanus/Pertussis Vaccine Inj 0.5 ML Syringe IM ONE (16:00)
--- NOTE | 2018-02-22 08:35 | P.PNOB ---
Subjective Post op day: 2 Objective Vital Signs/I&O: Vital Signs 02/21/18 11:51 Temperature 99.0 F Pulse Rate 99 H Respiratory Rate 18 Blood Pressure 114/73 Result Diagrams: 02/21/18 09:35 Objective Remarks: GENERAL: Well-nourished, well-developed patient. CARDIOVASCULAR: Regular rate and rhythm without murmurs, gallops, or rubs. RESPIRATORY: Breath sounds equal bilaterally. No accessory muscle use. ABDOMEN/GI: Abdomen soft, non-tender, bowel sounds present. Incision: Steri strips Clean, dry and intact. Fundus: Firm, non-tender at umbilicus. GENITOURINARY: Light to moderate bleeding. EXTREMITIES: No cyanosis or edema, non-tender, without signs of DVT. Medications and IVs: Active Medications Acetaminophen (Tylenol) 650 mg PO Q6H PRN PRN Reason: PAIN SCALE 1 TO 2 Hydrocodone Bitart/Acetaminophen ([place] 5/325) 1 tab PO Q4H PRN PRN Reason: PAIN 3-5 Last Admin: 02/21/18 07:50 Dose: 1 tab Hydrocodone Bitart/Acetaminophen ([place] 5/325) 2 tab PO Q4H PRN PRN Reason: PAIN 6-10 Last Admin: 02/22/18 04:39 Dose: 2 tab Citric Acid/Sodium Citrate (Sodium Citrate/Citric Acid Liq) 30 ml PO SYSTEMS ANALYST DEVEL[employer] [facility] Stop: 02/24/18 12:44 Cefazolin Sodium/Dextrose (Ancef 2 Gm Premix Inj) 2 gm in 50 mls @ 100 mls/hr IV.SIG SYSTEMS ANALYST [employer] Stop: 02/24/18 12:59 Last Admin: 02/21/18 14:17 Dose: 100 mls/hr Lactated Ringer's (Lr 1000 Ml Inj) 1,000 mls @ 150 mls/hr IV.CONT .Q6H40M [facility] Last Admin: 02/20/18 11:30 Dose: 150 mls/hr Ondansetron HCl (Zofran Inj) 4 mg IV.PUSH Q6H PRN PRN Reason: NAUSEA OR VOMITING Senna/Docusate Sodium (Daya-Colace) 2 tab PO Q12H PRN PRN Reason: CONSTIPATION Simethicone (Mylicon Chew) 80 mg PO QID PRN PRN Reason: FLATULENCE Last Admin: 02/20/18 22:56 Dose: 80 mg Sodium Chloride (Ns Flush) 2 ml IV.FLUSH BID TAMMY Last Admin: 02/20/18 20:14 Dose: Not Given Sodium Chloride (Ns Flush) 2 ml IV.FLUSH PRN PRN PRN Reason: FLUSH AFTER USING IV ACCESS Zolpidem Tartrate (Ambien) 5 mg PO HS PRN PRN Reason: INSOMNIA Assessment and Plan - Diagnosis (1) S/P repeat low transverse Code(s): Z98.891 - History of uterine scar from previous surgery Status: Acute (2) Polyhydramnios affecting in third trimester Code(s): O40.3XX0 - Polyhydramnios, third trimester, not applicable or unspecified Status: Acute (3) Macrosomia Code(s): P08.0 - Exceptionally large baby Status: Acute - Plan pt doing well pain well managed with oral pain medication bonding with routine care Discharge Planning: dc home today
--- NOTE | 2018-02-22 10:41 | P.DS ---
Date of admission: 02/20/18 10:10 Primary care physician: Aleisha Primary Care Physician Attending physician on discharge: Kye Velásquez Anticipated date of discharge: 02/22/18 Brief History from admission: pt being admitted for repeat c section, 39 week , macrosomia and polyhydramnios repeat c section routine care DS: Diagnosis - Discharge Diagnosis (1) S/P repeat low transverse Status: Acute (2) Polyhydramnios affecting in third trimester Status: Acute (3) Macrosomia Status: Acute DS: Medications - Discharge Medications Prescriptions: ibuprofen 800 mg PO Q8H PRN #30 tab PRN Reason: POST CRAMPING DS: Summary Hospital Course: repeat c section term routine care - Time Spent with Patient Total time spent providing and/or coordinating discharge services: Exam Vital signs: Vital Signs 02/21/18 11:51 02/22/18 08:00 Temperature 99.0 F 98.2 F Pulse Rate 99 H 93 H Respiratory Rate 18 18 Blood Pressure 114/73 148/88 H Results Procedures completed during hospitalization: post op routine Discharge Plan - Discharge Disposition Patient Disposition: 01 Discharge Home - Discharge Condition Condition: Good - Discharge Order Discharge Orders: Discharge Order (Routine); Ordered 02/22/18 Ordered By: Kim Wang GATHERING MACHINE FEEDER Clear for Discharge (Routine); Ordered 02/22/18 Ordered By: Kim Wang - Discharge Details Anticipated Discharge Date: 02/22/18 - Physicians Team Primary Care Provider: Primary Aleisha Khan Attending Provider: Kye Velásquez - Rxs /Orders / Referrals /Forms Prescriptions: New ibuprofen 800 mg Tablet 800 mg PO Q8H PRN (Reason: POST CRAMPING) Qty: 30 RF: 1 Continue ferrous sulfate [iron] 325 mg (65 mg iron) Tablet 325 mg PO DAILY Imitrex capsule 100 mg PO PRN 1 cap PO DAILY Referrals: Primary Care Aleisha Rowe [Primary Care Provider] - See Instructions Kye Velásquez MD [Physician] - See Instructions (schedule appt in office for 1 week) - Post Discharge Care Plan Care Plan Goals: Your Health Problems: Goals to Promote Your Health: * To prevent worsening of your condition * To maintain your health at the optimal level Directions to Meet Your Goals: * Take your medications as prescribed * Follow your dietary instruction * Follow activity as directed * Keep your appointments as scheduled * Take your immunizations and boosters as scheduled * If your symptoms worsen call your PCP * If no PCP go to Urgent Care or Emergency Room Smoking is dangerous to your health. Avoid second hand smoke. You may reach the 24-hour crisis hotline for domestic abuse at .
== END 2018-02-22 16:44 | disposition home or self-care (01) ==
LOC: H2E 10:10 → H1EA 15:15
PROVIDERS: ADMIT Obstetrics & Gynecology; ATTEND Obstetrics & Gynecology